=== PATIENT | female | born 1965 | race Caucasian/White ===

== ENCOUNTER 2025-01-29 08:36 | Emergency (ER) | payer SELFPAY ==
[~2025-01-29] VITALS: Ht 152.4 cm; Wt 65.0 kg
[~2025-01-29 08:36] MED LIST: CODACE30 PO; CYCL10 PO; Catapres0.1 MG PO; HYDACE5 PO; IBUP600 PO; LEVO750 PO; Loperamide2 MG PO; MEDR10 PO; PROM25 PO; RXCLIN PO
[2025-01-29 09:36] VITALS: BP 170/86
[2025-01-29] MEDS ORDERED: METH40 PO (09:40)
[2025-01-29] MEDS ORDERED: CATAPRES0.1 MG (09:40)
[2025-01-29] MEDS ORDERED: Methadone HCL 10 MG TAB PO ONE (10:30)
== END 2025-01-29 10:43 | disposition home or self-care (01) ==
LOC: ER 08:36
DX: Z76.89 Persons encountering health services in other specified circumstances (principal); I10 Essential (primary) hypertension; I25.10 Atherosclerotic heart disease of native coronary artery without angina pectoris; F17.210 Nicotine dependence, cigarettes, uncomplicated; Z79.899 Other long term (current) drug therapy; Z88.0 Allergy status to penicillin; Z88.8 Allergy status to other drugs, medicaments and biological substances
CPT/HCPCS: 99281; A9270

== ENCOUNTER 2025-02-05 14:37 | Observation (INO) | payer MEDICAID ==
[~2025-02-05] VITALS: Ht 152.4 cm; Wt 64.5 kg
[~2025-02-05 14:37] MED LIST changes: +CATAPRES0.1 MG; +METH40 PO
[2025-02-05 15:16] LABS: BASOPHILS ABSOLUTE AUTO 0.03 K/mm3 (0.00-0.23); BASOPHILS PERCENT AUTO 0 % (0-2); EOSINOPHILS ABSOLUTE AUTO 0.11 K/mm3 (0.00-0.68); EOSINOPHILS PERCENT AUTO 1 % (0-6); Hematocrit 44.4 % (33.0-51.0); Hemoglobin 14.1 g/dL (11.5-16.0); IMMATURE GRAN ABSOLUTE AUTO 0.02 K/mm3 (0.00-0.10); IMMATURE GRAN PERCENT AUTO 0 % (0-1); LYMPHOCYTES ABSOLUTE AUTO 2.82 K/mm3 (0.84-5.20); LYMPHOCYTES PERCENT AUTO 27 % (21-46); MONOCYTES ABSOLUTE AUTO 0.55 K/mm3 (0.16-1.47); MONOCYTES PERCENT AUTO 5 % (4-13); Mean Corpuscular HGB 25.8 pg (26.0-34.0); Mean Corpuscular HGB Conc 31.8 g/dL (31.5-36.5); Mean Corpuscular Volume 81 fL (80-100); Mean Platelet Volume 10.2 fL (9.1-12.4); NEUTROPHILS ABSOLUTE AUTO 6.78 K/mm3 (1.96-9.15); NEUTROPHILS PERCENT AUTO 66 % (41-73); Platelet Count 313 K/mm3 (150-400); RDW Standard Deviation 44.5 fL (35.1-46.3); Red Blood Cell Count 5.47 M/mm3 (3.80-5.20); White Blood Cell Count 10.31 K/mm3 (4.00-11.30)
[2025-02-05 15:47] LABS: Albumin, Blood 3.7 g/dL (3.4-5.0); Albumin/Globulin Ratio 0.9 (0.8-1.8); Bilirubin, Total 0.3 mg/dL (0.1-1.0); Bun/Creatinine Ratio 23.8 (12.0-20.0); Calcium, Blood 9.4 mg/dL (8.5-10.1); Creatinine, Blood 0.97 mg/dL (0.40-1.00); Globulin, Blood 4.2 g/dL (2.2-4.0); Potassium, Blood 3.8 mmol/L (3.5-5.5); Total Protein, Blood 7.9 g/dL (6.4-8.2)
[2025-02-05] MEDS ORDERED: Aspirin 325 MG Tab PO ONE (17:40)
[2025-02-05] MEDS ORDERED: Ipratropium/Albuterol SulF 2.5-0.5MG/3 ML Amp INH ONE (17:40)
[2025-02-05] MEDS ORDERED: CloNIDine 0.1 MG Tab PO SCH (19:00)
[2025-02-05] MEDS ORDERED: Lisinopril 10 MG Tab PO SCH (19:00)
[2025-02-05] MEDS ORDERED: Ondansetron HCl 2 MG / ML 2ML Vial IV PRN (19:10)
[2025-02-05] MEDS ORDERED: Labetalol HCL 5 MG/ML 4ML Injection (Single Dose) IV PRN (19:15)
[2025-02-05 19:34] LABS: U Amphetamine Screen Not Detected; U Barbituate Screen Not Detected; U Benzodiazapine Screen Not Detected; U Buprenorphine Screen Not Detected; U Cannabinoids Screen Not Detected; U Cocaine Screen Not Detected; U Methadone Screen DETECTED; U Methamphetamine Screen Not Detected; U Opiates Screen Not Detected; U Oxycodone Screen Not Detected; U Phencyclidine Screen Not Detected
[2025-02-05] MEDS ORDERED: Nitroglycerin 1 INCH/GM PKT TOP ONE (20:00)
[2025-02-05] MEDS ORDERED: Furosemide 10 MG/ML 4ML Vial IV ONE (20:00)
[2025-02-05 20:58] VITALS: BP 150/69
--- NOTE | 2025-02-05 22:44 | NUR ---
ASSUMPTION OF CARE REPORT RECIEVED FROM ER NURSE OLGA. PT ARRIVED TO PCU VIA [facility] AT 1954. PT AMBULATED FROM [facility] TO PCU BED WITH SBA. PT A&O X4, CALM, COOPERATIVE TO CARE. SCAB SCATTERED T/O EXTREMITIES. HR IN THE 90'S SINUS RHYTYM, PVC'S. SHE DENIES ANY ACTIVE CP/PRESSURE, NUMB/TINGLING, SBP ELEVATED, SBP WAS IN THE 150'S, PT REPORTS SBP IN THE 200'S IS BASELINE FOR HER, SHE REPORTS NOT TAKING HER BLOOD PRESSURE MEDICATION FOR TWO YEARS. O2 >90% ON RA, SHE DENIES SOB, SHE DENIES O2 USE AT HOME. PT RESTING IN BED AT THIS TIME. SHE DENIES ANY QUESTIONS OR CONCERNS AT THIS TIME.
[2025-02-06 00:49] VITALS: BP 138/74
[2025-02-06 04:05] VITALS: BP 119/65
[2025-02-06 04:19] LABS: Albumin, Blood 3.2 g/dL (3.4-5.0); Albumin/Globulin Ratio 0.9 (0.8-1.8); Bilirubin, Total 0.4 mg/dL (0.1-1.0); Bun/Creatinine Ratio 19.8 (12.0-20.0); Calcium, Blood 8.4 mg/dL (8.5-10.1); Creatinine, Blood 1.26 mg/dL (0.40-1.00); Globulin, Blood 3.5 g/dL (2.2-4.0); Magnesium, Blood 2.1 mg/dL (1.6-2.4); Potassium, Blood 3.9 mmol/L (3.5-5.5); Total Protein, Blood 6.7 g/dL (6.4-8.2)
--- NOTE | 2025-02-06 06:00 | NUR ---
SHIFT SUMMARY PT A&O X4, CALM, COOPERATIVE TO CARE. HR IN 90'S, SINUS RHYTHM, SHE DENIES CP/PRESSURE, NUMB/TINGLING. PT BP TRENDING DOWNWARD, SBP IN THE 150'S LAST SBP AT 119, PT DID NOT REQUIRE ANY PRN BLOOD PRESSURE MEDICATIONS. PT REPORTS HER BP RUNS HIGH AT BASELINE. O2 >90% ON RA, SHE DENIES ANY SOB. NO ACUTE CHANGES T/O SHIFT. PT RESTING IN BED T/O SHIFT. SHE DENIES ANY QUESTIONS OR CONCERNS. CALL LIGHT IN REACH. BED IN LOWEST POSITION. WILL MONITOR PT AND REPORT TO ONCOMING RN.
[2025-02-06 07:18] LABS: CHOL/HDL RATIO 3.6; Cholesterol 154 mg/dL (50-200); HDL Cholesterol 43 mg/dL (>39); LDL/HDL RATIO 1.9; Low Density Lipoprotein Chol 80 mg/dL (0-110); Triglycerides 157 mg/dL (30-160); Very Low Density Lipoprot Chol 31 mg/dL (6-32)
[2025-02-06 07:50] VITALS: BP 145/69
[2025-02-06] MEDS ORDERED: Benzonatate 100 MG Cap PO PRN (07:55)
[2025-02-06] MEDS ORDERED: Albuterol HFA200 ACT/6.7 GM INH INH PRN (08:55)
[2025-02-06] MEDS ORDERED: Aspirin 81 MG Chew PO SCH (09:00)
[2025-02-06] MEDS ORDERED: Lisinopril 10 MG Tab PO SCH (09:00)
[2025-02-06] MEDS ORDERED: Methadone HCL 10 MG TAB PO SCH (09:00)
[2025-02-06] MEDS ORDERED: Enoxaparin 40 MG/0.4 ML SYR SC SCH (09:00)
[2025-02-06] MEDS ORDERED: CloNIDine 0.1 MG Tab PO SCH (09:00)
[2025-02-06] MEDS ORDERED: Nicotine 14 MG PATCH TOP SCH (09:00)
[2025-02-06] MEDS ORDERED: Lisinopril 20 MG Tab PO SCH ×2 (09:00)
[2025-02-06] MEDS ORDERED: ALBU90OI INH (13:50)
[2025-02-06] MEDS ORDERED: LISI20 PO (13:51)
[2025-02-06] MEDS ORDERED: ASPI81CH PO (13:51)
[2025-02-06] MEDS ORDERED: METO25ER PO (13:52)
[2025-02-06 14:30] VITALS: BP 150/67
--- NOTE | 2025-02-06 15:27 | NUR ---
SHIFT SUMMARY/ DC NOTE: NO SIGNIFICANT EVENTS HAPPENED DURING THIS SHIFT. PT REMAINED A&OX4, FOLLOWS COMMANDS AND REMAINED FREE FROM ANY CP, PRESSURE OR TIGHTNESS. PT WAS GIVEN EVENING METHADONE DOSE EARY TO REVIEVE HER DAILY DOSE PRIOR TO DC PER PROVIDER. PT WAS GIVEN WRITTEN AND VERBAL DC INSTRUCTIONS AND WAS INSTRUCTED TO COME BACK TO THIS FACILITY IF SYMPTOMS WORSEN. PT NOT IN ANY DISTRESS AT THIS TIME. VSS. IV REMOVED WITH CATHETER INTACT. PT DENIES ANY FURTHER QUESTIONS OR CONCERNS. BELONGING WERE COLLECTED AND TAKEN HOME. THIS RN WHEELED PT TO CAR VIA WHEELCHAIR.
== END 2025-02-06 14:58 | disposition home or self-care (01) ==
LOC: ER 14:37 → PCU 19:07
PROVIDERS: Emergency Medicine; Nurse Practitioner Acute Care; ADMIT Internal Medicine
DX: I16.0 Hypertensive urgency (principal); I11.0 Hypertensive heart disease with heart failure; I50.9 Heart failure, unspecified; J44.9 Chronic obstructive pulmonary disease, unspecified; R79.89 Other specified abnormal findings of blood chemistry; I25.10 Atherosclerotic heart disease of native coronary artery without angina pectoris; F11.10 Opioid abuse, uncomplicated; F17.210 Nicotine dependence, cigarettes, uncomplicated; I25.2 Old myocardial infarction; Z91.148 Patient's other noncompliance with medication regimen for other reason; Z88.0 Allergy status to penicillin; Z88.8 Allergy status to other drugs, medicaments and biological substances; Z91.040 Latex allergy status; Z95.5 Presence of coronary angioplasty implant and graft
CPT/HCPCS: 36415; 71046; 80053; 80061; 83735; 83880; 84443; 84484; 85025; 93005; 93010; 93306; 96374; 99285-25; A9270; G0378; J1938

== ENCOUNTER 2025-05-28 16:18 | Emergency (ER) | payer OTHER ==
[~2025-05-28] VITALS: Ht 152.4 cm; Wt 63.5 kg
[~2025-05-28 16:18] MED LIST changes: +ALBU90OI INH; +ASPI81CH PO; +LISI20 PO; +METO25ER PO
[2025-05-28] MEDS ORDERED: Ondansetron 4 MG SoluTab SL ONE (18:45)
[2025-05-28] MEDS ORDERED: OFLOXACIN5 M1 RIGHTEAR (19:07)
[2025-05-28] MEDS ORDERED: ONDA4ODT MM (19:07)
[2025-05-28 19:17] VITALS: BP 239/95
[2025-05-29] MEDS ORDERED: LISI20 PO (23:22)
== END 2025-05-28 19:20 | disposition home or self-care (01) ==
LOC: ER 16:18
DX: H60.91 Unspecified otitis externa, right ear (principal); I10 Essential (primary) hypertension; Z88.0 Allergy status to penicillin; Z91.040 Latex allergy status; Z79.82 Long term (current) use of aspirin; Z79.899 Other long term (current) drug therapy; F17.210 Nicotine dependence, cigarettes, uncomplicated
CPT/HCPCS: 99282; A9270